=== PATIENT | male | born 1995 | race Hispanic/Latino ===

== ENCOUNTER 2018-07-21 06:49 | Observation (INO) | payer BC ==
[2018-07-21 06:49] VITALS: BMI 22.3
[2018-07-21] MEDS ORDERED: Sodium Chloride 0.9% 1,000 ML IV STA (07:07)
--- NOTE | 2018-07-21 07:20 | ED PDOC ---
Arrival/HPI - General Chief Complaint: Abdominal Pain Time Seen by Provider: 07/21/18 07:03 Historian: Patient - History of Present Illness Narrative History of Present Illness (Text): 07/21/18 07:03 Juice Bowie is a 23 year old male, with no significant past medical history, who presents to the emergency department complaining of sharp right lower quadrant pain since 24 hours ago. Patient notes abdominal pain began as diffuse but is now focused to right lower quadrant. Patient states pain has improved since onset. Patient notes constipation at last bowel movement 8 hours ago. Patient informs of intermittent chills and mild nausea. Patient denies any chest pain, shortness of breath, headache, fever, cough, vomiting, diarrhea, dysuria, hematuria, frequency, flank pain, testicular pain or penile discharge. Time/Duration: 24 hours Symptom Course: Improving Activities at Onset: Light Context: Home Past Medical History - Provider Review Nursing Documentation Reviewed: Yes - Past History Past History: No Previous - Psychiatric Hx Substance Use: No - Past Surgical History Past Surgical History: No Previous Family/Social History - Physician Review Nursing Documentation Reviewed: Yes Family/Social History: No Known Family HX Smoking Status: Never Smoked Hx Alcohol Use: No Hx Substance Use: No Hx Substance Use Treatment: No Allergies/Home Meds Allergies/Adverse Reactions: Allergies No Known Allergies Allergy (Verified 07/20/13 15:36) Home Medications: Home Meds Medication Instructions Recorded Confirmed No Known Home Med 07/21/18 07/21/18 Review of Systems - Physician Review All systems were reviewed & negative as marked: Yes - Review of Systems Gastrointestinal: absent: Vomiting Genitourinary Male: absent: Dysuria Physical Exam - Physical Exam Narrative Physical Exam (Text): 07/21/18 07:03 Constitutional: No acute distress. Head: Normocephalic. Atraumatic. Eyes: PERRL. ENT: Moist mucous membranes. Neck: Supple. Cardiovascular: Regular rate. Chest: No tenderness. Respiratory: Clear to auscultation bilaterally. GI: Right lower quadrant tenderness with guarding. Mild rebound. Nondistended. Back: No CVA tenderness. Musculoskeletal: No tenderness or swelling of extremities. Skin: No rash. Neurologic: Alert, no focal deficit. Vital Signs Reviewed: Yes Vital Signs Temp Pulse Resp BP Pulse Ox 07/21/18 06:58 97.4 F L 96 H 18 154/69 H 99 Temperature: Afebrile Blood Pressure: Hypertensive Pulse: Regular Respiratory Rate: Normal Appearance: Positive for: Well-Appearing, Non-Toxic, Comfortable Pain Distress: None Mental Status: Positive for: Alert and Oriented X 3 Medical Decision Making ED Course and Treatment: 07/21/18 07:03 Impression: Patent is a 23 year old male who presents to the emergency department complaining of right lower quadrant pain since 24 hours. Patient notes abdominal pain has improved since onset. Differential Diagnosis included but are not limited to: Plan: -- Abdomen/Pelvis CT w/ IV Contrast -- Labs -- IV Fluids -- Urinalysis -- Reassess and disposition Prior Visits: Notes and results from previous visits were reviewed. Progress Notes: 07/21/18 08:48 CT Abdomen/Pelvis with contrast shows: IMPRESSION: 1. Findings are equivocal for acute appendicitis. Appendix is mildly dilated without evidence for surrounding inflammatory changes, in the appropriate clinical setting these findings could represent early uncomplicated acute appendicitis. 2. Mild right and moderate left hydronephrosis with mild diffuse dilatation of both ureters without evidence for obstructive uropathy. Moderate diffuse circumferential mural thickening of the urinary bladder wall. These findings could represent ascending urinary tract infection. Please correlate with urine analysis. 07/21/18 09:[address] Bond, who will send surgical coordinator to evaluate pt. 07/21/18 09:08 Discussed case with surgical coordinator, who will evaluate patient. 07/21/18 10:10 Spoke to surgical coordinator, who informs patient will be admitted to medical service. Patient will be operated on as soon as possible. 07/21/18 10:43 Dr. Bowie Medicine precision thread grinder operator accepts patient to medical service. - RAD Interpretation Narrative RAD Interpretations (Text): 07/21/18 08:48 CT Abdomen/Pelvis with contrast shows: IMPRESSION: 1. Findings are equivocal for acute appendicitis. Appendix is mildly dilated without evidence for surrounding inflammatory changes, in the appropriate clinical setting these findings could represent early uncomplicated acute appendicitis. 2. Mild right and moderate left hydronephrosis with mild diffuse dilatation of both ureters without evidence for obstructive uropathy. Moderate diffuse circumferential mural thickening of the urinary bladder wall. These findings could represent ascending urinary tract infection. Please correlate with urine analysis. Radiology Orders: 07/21/18 07:07 ABD & PELVIS IV CONTRAST ONLY [CT] Stat - Medication Orders Current Medication Orders: Sodium Chloride (Sodium Chloride 0.9%) 1,000 mls @ 999 mls/hr IV .Q1H1M STA Stop: 07/21/18 08:07 - Scribe Statement The provider has reviewed the documentation as recorded by the Scribe Lang Onofre All medical record entries made by the Scribe were at my direction and personally dictated by me. I have reviewed the chart and agree that the record accurately reflects my personal performance of the history, physical exam, medical decision making, and the department course for this patient. I have also personally directed, reviewed, and agree with the discharge instructions and disposition. Disposition/Present on Arrival - Present on Arrival Any Indicators Present on Arrival: No History of DVT/PE: No History of Uncontrolled Diabetes: No Urinary Catheter: No History of Decub. Ulcer: No History Surgical Site Infection Following: None - Disposition Have Diagnosis and Disposition been Completed?: Yes Diagnosis: Acute appendicitis Disposition: HOSPITALIZED Disposition Time: 09:25 Condition: GOOD Forms: [employer] (Kazakh)
[2018-07-21 07:39] LABS: BASO # 0.02 K/mm3 (0.0-2.0); BASO % 0.3 % (0.0-3.0); EOS # 0.3 (0.0-0.7); EOS % 3.9 % (1.5-5.0); HEMOGLOBIN 15.8 g/dL (14.0-18.0); LYMPH # 2.8 (1.2-3.4); LYMPH % 34.8 % (22.0-35.0); MEAN CELL VOLUME 92.5 fl (80.0-105.0); MEAN CORPUSCULAR HEMOGLOBIN 30.6 pg (25.0-35.0); MEAN CORPUSCULAR HGB CONC 33.1 g/dl (31.0-37.0); MEAN PLATELET VOLUME 10.3 fl (7.0-11.0); MONO # 0.8 (0.1-0.6); MONO % 9.9 % (1.0-6.0); RBC 5.17 10^6/uL (3.5-6.1); RED CELL DISTRIBUTION WIDTH 12.4 % (11.5-14.5)
[2018-07-21 07:47] LABS: ALB/GLOB RATIO 1.5 (1.1-1.8); ALBUMIN 4.8 g/dL (3.0-4.8); ALT/SGPT 33 U/L (7-56); AST/SGOT 30 U/L (17-59); BLOOD UREA NITROGEN 11 mg/dL (7-21); CALCIUM 9.9 mg/dL (8.4-10.5); GFR NON-AFRICAN AMERICAN > 60; LIPASE 43 U/L (23-300)
[2018-07-21] MEDS ORDERED: Iohexol 350 MG/100 ML VIAL ONE (08:01)
--- NOTE | 2018-07-21 08:52 | CT ---
Date of service: 07/21/2018 PROCEDURE: CT Abdomen and Pelvis with contrast HISTORY: RLQ tenderness COMPARISON: None available. TECHNIQUE: CT scan of the abdomen and pelvis was performed after administration of intravenous contrast. Oral contrast was not administered. Coronal and sagittal reformatted images were obtained. Contrast dose: 100 mL Omnipaque 350 Radiation dose: Total exam DLP = 687.52 mGy-cm. This CT exam was performed using one or more of the following dose reduction techniques: Automated exposure control, adjustment of the mA and/or kV according to patient size, and/or use of iterative reconstruction technique. FINDINGS: LOWER THORAX: The visualized lungs are clear. LIVER: Normal in size with homogeneous enhancement. No gross lesion or ductal dilatation. GALLBLADDER AND BILE DUCTS: Well distended. No calcified gallstones, wall thickening or pericholecystic fluid. PANCREAS: Normal in size with homogeneous enhancement. No gross lesion or ductal dilatation. SPLEEN: Mild splenomegaly. Normal homogeneous enhancement ADRENALS: No discrete nodule. KIDNEYS AND URETERS: Normal in size with homogeneous enhancement. There is mild right and moderate left hydronephrosis. There is mild diffuse dilatation of both ureters without obstructing stone. VASCULATURE: No aortic aneurysm. There are no aortic atherosclerotic calcifications or mural plaque present. BOWEL: Evaluation of the bowel is limited in the absence of oral contrast. The small bowel loops are normal in caliber. The colon is grossly normal in appearance. No bowel wall thickening or obstruction. APPENDIX: The appendix is mildly dilated and measures 8 mm in diameter. No evidence for surrounding inflammatory changes or appendicolith. PERITONEUM: No free fluid. No free air. LYMPH NODES: No enlarged lymph nodes. BLADDER: The urinary bladder is partially distended. There is moderate circumferential mural thickening of the bladder wall. REPRODUCTIVE: The prostate gland is normal in size. BONES: No acute fracture. Within normal limits for the patient's age. OTHER FINDINGS: None. IMPRESSION: 1. Findings are equivocal for acute appendicitis. Appendix is mildly dilated without evidence for surrounding inflammatory changes, in the appropriate clinical setting these findings could represent early uncomplicated acute appendicitis. 2. Mild right and moderate left hydronephrosis with mild diffuse dilatation of both ureters without evidence for obstructive uropathy. Moderate diffuse circumferential mural thickening of the urinary bladder wall. These findings could represent ascending urinary tract infection. Please correlate with urine analysis.
[2018-07-21 08:53] LABS: URINE BILIRUBIN NEGATIVE (NEGATIVE); URINE BLOOD TRACE-LYSED (NEGATIVE); URINE GLUCOSE (UA) NEGATIVE (NEGATIVE); URINE LEUKOCYTE ESTERASE NEGATIVE Leu/uL (NEGATIVE); URINE PROTEIN NEGATIVE mg/dL (<30 mg/dL); URINE UROBILINOGEN 0.2 E.U./dL (<1 E.U./dL)
[2018-07-21 09:34] LABS: URINE APPEARANCE CLEAR (CLEAR); URINE COLOR YELLOW (YELLOW)
[2018-07-21 09:36] LABS: URINE BACTERIA FEW /hpf; URINE WBC 0 - 2 /hpf (0-6)
[2018-07-21] MEDS ORDERED: cefTRIAXone 1 gm 1 GM/100 ML BAG IVPB STA (10:10)
[2018-07-21] MEDS ORDERED: metroNIDAZOLE IV 500 mg/100 ml 500 MG/100 ML BAG IVPB STA (10:10)
--- NOTE | 2018-07-21 10:25 | CP.PCM.CON ---
History of Present Illness - History of Present Illness History of Present Illness: Surgery Consult Note. Dr. Chang 23yo M with no PMHx here for evaluation of abdominal pain. Pain started yesterday morning, located periumbilically at first, and gradually moved to RLQ. Described as sharp at first and now reported as a constant dull ache. Associated with nausea and anorexia, no vomiting. Does report chills, no fevers. Last food intake was last night. Drank water this morning. Denies any chest pain, no shortness of breath. Denies any urinary complaints. Denies any recent sexual contact. No sick contacts. PMHx: Denies PSHx: Denies Family Hx: Non-contributory Social Hx: Denies tobacco use, Denies ETOH use, Denies illicit drugs NKDA Review of Systems - Review of Systems All systems: reviewed and no additional remarkable complaints except - Constitutional Constitutional: Anorexia, Chills. absent: Fever, Lethargy, Malaise, Weakness - Cardiovascular Cardiovascular: absent: Chest Pain, Diaphoresis, Dyspnea - Gastrointestinal Gastrointestinal: Abdominal Pain, Nausea. absent: Vomiting - Genitourinary Genitourinary: absent: Dysuria Past Patient History - Past Medical History & Family History Past Family History: Reviewed and not pertinent - Past Social History Smoking Status: Never Smoked Alcohol: None Drugs: Denies - PSYCHIATRIC Hx Substance Use: No - SURGICAL HISTORY Hx Surgeries: No Meds Allergies/Adverse Reactions: Allergies Allergy/AdvReac Type Severity Reaction Status Date / Time No Known Allergies Allergy Verified 07/20/13 15:36 - Medications Medications: Current Medications Metronidazole (Flagyl) 500 mg in 100 mls @ 100 mls/hr IVPB STAT STA; Protocol Stop: 07/21/18 11:09 Ceftriaxone Sodium (Rocephin 1 Gram Ivpb) 1 gm in 100 mls @ 100 mls/hr IVPB STAT STA; Protocol Stop: 07/21/18 11:09 Physical Exam - Constitutional Appears: Well, Non-toxic, No Acute Distress - Head Exam Head Exam: ATRAUMATIC, NORMAL INSPECTION, NORMOCEPHALIC - Eye Exam Eye Exam: EOMI, Normal appearance. absent: Scleral icterus - ENT Exam ENT Exam: Mucous Membranes Moist, Normal Exam - Respiratory Exam Respiratory Exam: NORMAL BREATHING PATTERN. absent: Accessory Muscle Use, Respiratory Distress - Cardiovascular Exam Cardiovascular Exam: RRR. absent: JVD - GI/Abdominal Exam GI & Abdominal Exam: Soft. absent: Distended, Firm, Guarding Additional comments: RLQ tenderness to palpation. +Rebound. No peritoneal signs. - Extremities Exam Extremities exam: Positive for: normal inspection. Negative for: calf tenderness - Back Exam Back exam: NORMAL INSPECTION - Neurological Exam Neurological exam: Alert, Oriented x3 - Psychiatric Exam Psychiatric exam: Normal Affect, Normal Mood - Skin Skin Exam: Dry, Intact, Normal Color, Warm Results - Vital Signs Recent Vital Signs: Last Vital Signs Temp 97.4 F L 07/21/18 06:58 Pulse 89 07/21/18 09:48 Resp 18 07/21/18 09:48 BP 122/70 07/21/18 09:48 Pulse Ox 95 07/21/18 09:48 - Labs Result Diagrams: 07/21/18 07:24 07/21/18 07:24 Labs: Laboratory Results - last 24 hr 07/21/18 07/21/18 07/21/18 07:24 07:24 08:30 WBC 8.0 RBC 5.17 Hgb 15.8 Hct 47.8 MCV 92.5 MCH 30.6 MCHC 33.1 RDW 12.4 Plt Count 264 MPV 10.3 Neut % (Auto) 51.1 Lymph % (Auto) 34.8 [place] % (Auto) 9.9 H Eos % (Auto) 3.9 Baso % (Auto) 0.3 Lymph # (Auto) 2.8 [place] # (Auto) 0.8 H Eos # (Auto) 0.3 Baso # (Auto) 0.02 Absolute Neuts (auto) 4.08 Sodium 142 Potassium 4.3 Chloride 105 Carbon Dioxide 29 Anion Gap 13 BUN 11 Creatinine 0.8 Est GFR ( Amer) > 60 Est GFR (Non-Af Amer) > 60 Random Glucose 101 Calcium 9.9 Total Bilirubin 1.0 AST 30 ALT 33 Alkaline Phosphatase 85 Total Protein 8.0 Albumin 4.8 Globulin 3.2 Albumin/Globulin Ratio 1.5 Lipase 43 Urine Color Yellow Urine Appearance Clear Urine pH 6.0 Ur Specific [place] <= 1.005 Urine Protein Negative Urine Glucose (UA) Negative Urine Ketones Negative Urine Blood Trace-lysed H Urine Nitrate Negative Urine Bilirubin Negative Urine Urobilinogen 0.2 Ur Leukocyte Esterase Negative Urine RBC 1 - 3 H Urine WBC 0 - 2 Ur Epithelial Cells None Urine Bacteria Few Assessment & Plan - Assessment and Plan (Free Text) Assessment: 23yo M with no PMHx here with acute appendicitis Plan: - Will prep for OR this morning - Periop IV abx - NPO Further recs as per Dr. Charlene Walker PGY2 Surgery
[2018-07-21] MEDS ORDERED: HYDROmorphone 1 mg/ml ISec IVP PRN (10:52)
[2018-07-21 10:59] LABS: INR 1.16; PARTIAL THROMBOPLASTIN TIME 36.7 Seconds (26.9-38.3); PROTHROMBIN TIME 13.1 SECONDS (9.4-12.5)
[2018-07-21] MEDS ORDERED: Dextrose 5%/0.45% NS 1,000 ML IV SCH (11:00)
[2018-07-21] MEDS ORDERED: Propofol 10 mg/ml Inj (20 ML) ONE (11:11)
[2018-07-21] MEDS ORDERED: Rocuronium 10 mg/ml (5 ml) ONE (11:12)
[2018-07-21] MEDS ORDERED: Succinylcholine 200 mg/10 ml Inj IV ONE (11:12)
[2018-07-21] MEDS ORDERED: Bupivacaine 0.5% 50 ML IJ ONE (11:12)
[2018-07-21] MEDS ORDERED: Neostigmine Methylsulfate 3mg/3ml Syringe IV ONE (11:55)
[2018-07-21] MEDS ORDERED: HYDROmorphone 0.5 mg/0.5 ml ISec IVP PRN (12:53)
[2018-07-21] MEDS ORDERED: Lactated Ringer's 1,000 ML IV SCH (13:00)
--- NOTE | 2018-07-21 13:15 | PCM.SURG1 ---
Surgeon's Initial Post Op Note - Surgeon's Notes Surgeon: Dr. Chang Archivist Political History: Aaron PGY2 Type of Anesthesia: General Endo, Local Anesthesia Administered By: Dr. Stokes Pre-Operative Diagnosis: Acute Appendicitis Operative Findings: Inflammed Appendix Post-Operative Diagnosis: Same Operation Performed: Laparoscopic Appendectomy Specimen/Specimens Removed: Appendix Estimated Blood Loss: EBL {In ML}: 10 Blood Products Given: N/A Drains Used: No Drains Post-Op Condition: Good Date of Surgery/Procedure: 07/21/18 Time of Surgery/Procedure: 13:14
[2018-07-21 13:41] VITALS: BP 132/66; PULSE 96; RESP 18; TEMP 98.2; O2SAT 96
[2018-07-21] MEDS ORDERED: metroNIDAZOLE IV 500 mg/100 ml 500 MG/100 ML BAG IVPB SCH (14:00)
[2018-07-21] MEDS: Oxycodone/Acetaminophen 5/325 mg Tab PO PRN ×2 (14:10→18:18)
--- NOTE | 2018-07-21 22:58 | HP ---
DATE OF EXAM: 07/21/2018 HISTORY OF PRESENT ILLNESS: The patient is a 23-year-old white male who came to emergency room, when he woke up this morning, he started to have sharp right lower quadrant pain. He had some periumbilical discomfort last night, but did not pay much attention and this morning when he woke up, he was having sharp pain in right lower quadrant. His mother who is a nurse in [facility], checked him and suspected acute appendicitis and so she brought him to emergency room for further evaluation. He did complain of constipation yesterday. He had fever with some chills and feeling of nausea. No history of any urinary symptoms. PAST MEDICAL HISTORY: He has no significant past medical history. ALLERGIES: HE IS NOT ALLERGIC TO ANY MEDICATIONS. MEDICATIONS: He does not take any medication at home. SOCIAL HISTORY: He is a student. Denies smoking or drinking alcohol. PHYSICAL EXAMINATION: GENERAL: He is awake, alert, and able to communicate. VITAL SIGNS: He is afebrile, pulse 94, respirations 18, and blood pressure 132/73. LUNGS: Bilateral fair airflow. No rhonchi or crackles. HEART: S1 and S2 audible. ABDOMEN: Soft. He has right lower quadrant palpable discomfort with some rebound and guarding. LABORATORY DATA: WBC 8, hemoglobin 15.8, hematocrit 47.8, and platelets 264. Chemistry; sodium 142, potassium 4.3, chloride 105, CO2 of 29, BUN 11, creatinine 0.8, and blood sugar of 101. LFTs are within normal limits. Urinalysis shows positive blood and RBCs urine. CT scan of the abdomen and pelvis done that shows acute appendicitis, mildly distended appendix without evidence of surrounding inflammatory changes. ASSESSMENT: 1. Acute appendicitis. 2. History of constipation. PLAN: The patient is being taken to OR. We will keep him n.p.o. We will give him IV fluids and IV antibiotics. Surgical team is making arrangement for excision of appendix. Dallas Bowie MD
--- NOTE | 2018-07-22 02:11 | OP ---
PROCEDURE DATE: 07/21/2018 PRIMARY SURGEON: Chin Chang MD AIRCRAFT TIME CLERK: Dioni Walker DO, PGY-2 TYPE OF ANESTHESIA: General endotracheal and local anesthesia. ANESTHESIA ADMINISTERED BY: Ko Stokes MD PREOPERATIVE DIAGNOSIS: Acute appendicitis. POSTOPERATIVE DIAGNOSIS: Acute appendicitis. OPERATION PERFORMED: Laparoscopic appendectomy. SPECIMEN: Appendix. ESTIMATED BLOOD LOSS: 10 mL. There were no blood products given. There was no drain used. POSTOPERATIVE CONDITION: Good. TIME OF SURGERY: 1:14 p.m. INDICATION: Mr. Juice Bowie is a 23-year-old male who presented to the [facility] with one-day history of periumbilical pain that radiated down to the right lower quadrant. CT scan findings were consistent with acute appendicitis. The patient was seen and examined by myself and Dr. Chang, and the risks of the surgical plan of laparoscopic appendectomy was explained to the patient. The risk of the procedure, the planned approach, and the possible complications were all thoroughly explained to the patient who understood and opted for surgical removal of the appendix. DESCRIPTION OF PROCEDURE: The patient was then taken to the operating room and given perioperative antibiotics of Rocephin and Flagyl. General anesthesia was carried out without difficulty by the anesthesia team. Airway was protected with endotracheal tube. A surgical timeout procedure was performed, and the patient was draped and prepped in the usual sterile manner using chlorhexidine prep. A Faria catheter was not inserted as the patient was able to void just before coming into the operating room theater. No arms were tucked. Incision was made after using 0.5% Marcaine for the local anesthesia in the supraumbilical area. An incision was made using #11 blade and a Sybil was used to bluntly dissect down to the abdominal fascia. Towel clips were used to raise up the abdominal wall superiorly as the Veress needle was inserted through the incision into the umbilical stalk without any resistance. Saline was administered and it was noted to freely flow into the peritoneum. Pneumoperitoneum was obtained using CO2. The opening pressure was noted to be 1 and good flow was noted. Once the pneumoperitoneum was obtained, a 12 mm trocar was inserted at the supraumbilical port site. The camera was inserted and the entire abdomen was inspected and was noted to be free of any abdominal injuries. A suprapubic port was then obtained after using local anesthesia. Using a #11 blade, incision was made in the skin and the 12 mm port was inserted in the suprapubic region under direct vision. The base of the appendix was noted. The appendix was grasped and raised superiorly. The mesoappendix was then slowly dissected using electrocautery to obtain good, adequate hemostasis. The dissection was carried down to the base of the appendix. Once the appendiceal artery was noted, it was cauterized using electrocautery. The Endo TRACE stapler using the blue cartridge was used. Once the appendiceal base was encountered, the Endo TRACE was then fired across the base without any difficulty. The base of the appendix was visualized and no bleeding was noted. Electrocautery was used to ensure complete hemostasis. There was noted to be a peripelvic right side fluid collection which was aspirated. The entire abdominal cavity was again thoroughly inspected and no concerning findings were seen. The appendix was placed in the Endo bag and brought out through the supraumbilical port without any difficulty. Again, noted that there was no bleeding from the appendiceal stump, the mesoappendix, and throughout the abdominal cavity. The trocar sites were then inspected and no signs of bleeding were noted. The pneumoperitoneum was then deflated and the supraumbilical fascial defect was closed with 0 Vicryl suture in a [id number] fashion. The skin incision was then closed with an interrupted 3-0 Vicryl suture followed by 4-0 Monocryl in a running fashion. The suprapubic incision was also closed with 3-0 Vicryl and then with 4-0 Monocryl suture in a subcuticular running fashion. The incisions were then cleaned with saline and dried and Dermabond was applied. No complications were noted. The instrument and sponge counts were declared correct by the operating room staff. Blood loss was approximated to be 10 mL. The specimen that was sent to the laboratory analysis was the appendix. The patient was then brought to the recovery room once successfully extubated and no complaints or complications were noted. The patient was brought to the recovery room in stable condition. Dioni Walker DO Chin Chang MD MTDBertrand
[2018-07-22] MEDS ORDERED: cefTRIAXone 1 gm 1 GM/100 ML BAG IVPB SCH (10:00)
--- NOTE | 2018-07-23 02:35 | DS ---
HOSPITAL COURSE: Patient is 23 years old, who initially came in with abdominal discomfort, was found to have appendicitis, was taken to OR, had laparoscopic appendectomy done, was evaluated, was seen by surgical team and cleared for discharge. So, he was discharged home on Keflex 500 mg three times a day and take Tylenol as needed and he will follow with . Dallas Bowie MD
== END 2018-07-21 20:30 | disposition home or self-care (01) ==
LOC: ED 06:49 → INTOOBSV 10:39 → ERH 10:39 → 5RSO 13:40
PROVIDERS: ADMIT Internal Medicine; ATTEND Internal Medicine
DX: K35.80 Unspecified acute appendicitis (principal); N13.30 Unspecified hydronephrosis; K59.00 Constipation, unspecified
CPT/HCPCS: 44970; 74177; 80053; 81001; 83690; 85025; 85610; 85730; 86850; 86900; 88304; 96374; 99285; G0378; J0131; J0330; J0696; J2001; J2405; J2704; J2710; J3010; J7030; J7120; Q9967

== ENCOUNTER 2018-08-24 09:38 | Outpatient (CLI) | payer BC | END 2018-08-24 09:39 | disposition home or self-care (01) | LOC: RAD 09:38 | DX: N13.2 Hydronephrosis with renal and ureteral calculous obstruction (principal) ==